=== PATIENT | male | born 1965 | race African-American/Black ===

== ENCOUNTER 2019-12-06 10:07 | Emergency (ER) | payer OTHER ==
[~2019-12-06] VITALS: Ht 167.6 cm; Wt 76.0 kg
[2019-12-06 10:11] VITALS: BP 134/97
== END 2019-12-06 12:06 | disposition home or self-care (01) ==
LOC: ED 11:37
DX: J00 Acute nasopharyngitis [common cold] (principal)
CPT/HCPCS: 99281

== ENCOUNTER 2019-12-14 10:11 | Emergency (ER) | payer OTHER ==
[~2019-12-14] VITALS: Ht 167.6 cm; Wt 78.6 kg
[2019-12-14 10:15] VITALS: BP 144/95
--- NOTE | 2019-12-14 10:19 | NUR ---
EKG IN TRIAGE
[2019-12-14] MEDS ORDERED: DEXAMETHASONE 4 MG TABLET ONE (10:36)
[2019-12-14] MEDS ORDERED: DEXAMETHASONE 4 MG/ML, 1ML PO ONE (11:00)
[2019-12-14 11:49] LABS: BASOPHILS # (AUTO) 0.04 x10^3/uL (0-0.1); BASOPHILS % (AUTO) 1 % (0-1); EOSINOPHILS # (AUTO) 0.13 x10^3/uL (0-0.4); EOSINOPHILS % (AUTO) 2 % (1-7); LYMPHOCYTES # (AUTO) 1.85 x10^3/uL (1-3.4); LYMPHOCYTES % (AUTO) 33 % (22-44); MD NO; MEAN CORPUSCULAR HEMOGLOBIN 28.7 pg (27.5-34.5); MEAN CORPUSCULAR HGB CONC 32.6 g/dL (33.2-36.2); MEAN CORPUSCULAR VOLUME 88.1 fL (81-97); MEAN PLATELET VOLUME 8.3 fL (7.4-10.4); MONOCYTES % (AUTO) 11 % (2-9); NEUTROPHILS # (AUTO) 3.04 x10^3/uL (1.8-6.8); NEUTROPHILS % (AUTO) 54 % (42-75); PLATELET COUNT 302 x10^3/uL (130-400); RED BLOOD COUNT 5.49 x10^6/uL (4.38-5.82); RED CELL DISTRIBUTION WIDTH 13.6 % (9.4-14.8)
== END 2019-12-14 11:59 | disposition home or self-care (01) ==
LOC: ED 10:28
DX: J02.8 Acute pharyngitis due to other specified organisms (principal); B97.89 Other viral agents as the cause of diseases classified elsewhere; R69 Illness, unspecified; R94.31 Abnormal electrocardiogram [ECG] [EKG]
CPT/HCPCS: 36415; 70360; 71045; 85025; 87081; 87880; 93005; 99285; J1100

== ENCOUNTER 2020-06-08 14:28 | Emergency (ER) | payer SELFPAY ==
[2020-06-08 14:48] VITALS: BP 150/97
[2020-06-08 15:41] LABS: ALANINE AMINOTRANSFERASE 52 U/L (12-78); ALBUMIN 3.7 g/dL (3.4-5.0); ANION GAP 6 mmol/L (5-15); CALCIUM 9.6 mg/dL (8.5-10.1); CHLORIDE 110 mmol/L (98-107); CREATININE 1.35 mg/dL (0.7-1.3)
[2020-06-08 15:43] LABS: ALKALINE PHOSPHATASE 98 U/L (45-117); BILIRUBIN,TOTAL 0.7 mg/dL (0.2-1.0); TOTAL PROTEIN 7.7 g/dL (6.4-8.2)
[2020-06-08 16:03] LABS: BASOPHILS # (AUTO) 0.05 x10^3/uL (0-0.1); BASOPHILS % (AUTO) 1 % (0-1); EOSINOPHILS # (AUTO) 0.26 x10^3/uL (0-0.4); EOSINOPHILS % (AUTO) 3 % (1-7); LYMPHOCYTES # (AUTO) 2.59 x10^3/uL (1-3.4); LYMPHOCYTES % (AUTO) 28 % (22-44); MD NO; MEAN CORPUSCULAR HEMOGLOBIN 28.9 pg (27.5-34.5); MEAN CORPUSCULAR HGB CONC 32.9 g/dL (33.2-36.2); MEAN CORPUSCULAR VOLUME 87.8 fL (81-97); MEAN PLATELET VOLUME 8.5 fL (7.4-10.4); MONOCYTES # (AUTO) 0.64 x10^3/uL (0.2-0.8); MONOCYTES % (AUTO) 7 % (2-9); NEUTROPHILS # (AUTO) 5.61 x10^3/uL (1.8-6.8); NEUTROPHILS % (AUTO) 61 % (42-75); PLATELET COUNT 257 x10^3/uL (130-400); RED BLOOD COUNT 5.51 x10^6/uL (4.38-5.82); RED CELL DISTRIBUTION WIDTH 14.1 % (9.4-14.8)
--- NOTE | 2020-06-08 17:22 | NUR ---
PT CALLED FOR REPEAT VITAS. NO ANSWER WHEN CALLED @ 1722.
--- NOTE | 2020-06-08 18:07 | NUR ---
NA X 2
--- NOTE | 2020-06-08 18:47 | NUR ---
NA X 3
== END 2020-06-08 18:48 | disposition left against medical advice (07) ==
LOC: ED 18:42
DX: R05 Cough (principal); R00.0 Tachycardia, unspecified
CPT/HCPCS: 36415; 71045; 80053; 85025; 99284

== ENCOUNTER 2020-06-09 08:42 | Emergency (ER) | payer MEDICAID ==
[~2020-06-09] VITALS: Ht 167.6 cm; Wt 74.3 kg
[2020-06-09 08:48] VITALS: BP 169/100
--- NOTE | 2020-06-09 09:28 | NUR ---
PT WANTED WORK NOTE TO BE RELEASED BACK TO WORK AND BECAME INCREASINGLY FRUSTED THAT PA WOULD NOT CLEAR FOR WORK PRIOR TO RECEIVING COVID/FLU RESULTS. PT LEFT AMA.
== END 2020-06-09 09:29 | disposition left against medical advice (07) ==
LOC: ED 09:25
DX: B34.9 Viral infection, unspecified (principal); Z20.828 Contact with and (suspected) exposure to other viral communicable diseases; J02.9 Acute pharyngitis, unspecified; R51 Headache; R05 Cough; R11.2 Nausea with vomiting, unspecified
CPT/HCPCS: 36415; 87635; 99283

== ENCOUNTER 2020-06-10 08:38 | Emergency (ER) | payer MEDICAID ==
[~2020-06-10] VITALS: Ht 167.6 cm; Wt 73.6 kg
--- NOTE | 2020-06-10 09:02 | NUR ---
PT STATES HE WAS IN THIS ED YESTERDAY AND LEFT UPSET BECAUSE HE WAS WANTING A WORK NOTE TO RETURN TO WORK AND WAS INFORMED THAT HE WOULD NOT BE GETTING ONE. I EXPLAINED TO PT THAT WITH HIS SYMPTOMS THAT THE HEALTH DEPT AND CDC ARE RECOMMENDING THAT HE WHOULD SELF ISSOLATE FOR 14 DAYS. I PROVIDED PT WITH THE PRINTED MATERIAL WHICH EXPLAINS THESE RECOMMENDATIONS. CALL LIGHT W/I CL JOHNSON NAD NOTED.
[2020-06-10] MEDS ORDERED: DEXAMETHASONE 4 MG TABLET PO STA (09:29)
[2020-06-10] MEDS ORDERED: DEXAMETHASONE 4 MG TABLET ONE (09:30)
[2020-06-10 10:05] VITALS: BP 154/84
--- NOTE | 2020-06-10 10:06 | NUR ---
Patient/Caregiver given discharge instructions and they have confirmed that they understand the instructions. Patient ambulatory with steady gait.
== END 2020-06-10 10:07 | disposition home or self-care (01) ==
LOC: ED 09:06
DX: B34.9 Viral infection, unspecified (principal); Z20.828 Contact with and (suspected) exposure to other viral communicable diseases; J02.8 Acute pharyngitis due to other specified organisms; R05 Cough; M79.10 Myalgia, unspecified site
CPT/HCPCS: 36415; 87081; 87635; 87880; 99283